=== PATIENT | female | born 1945 | race Caucasian/White ===

== ENCOUNTER 2017-08-21 18:16 | Inpatient (IN) | payer OTHER ==
[~2017-08-21] VITALS: Ht 165.1 cm; Wt 54.4 kg
--- NOTE | 2017-08-21 18:46 | NUR ---
PATIENT IS AWAKE AND ALERT IN NO DISTRESS.
[2017-08-21 20:03] LABS: BASOPHILS % (AUTO) 0.4 % (0.0-2.0); EOSINOPHILS % (AUTO) 0.6 % (0.0-7.0); HEMATOCRIT 44.3 % (37-47); HEMOGLOBIN 14.3 G/DL (12.0-16.0); LYMPHOCYTES # (AUTO) 1.2 K/UL (0.8-4.8); LYMPHOCYTES % (AUTO) 17.2 % (20.5-51.5); MEAN CORPUSCULAR HEMOGLOBIN 30.9 UUG (27.0-31.0); MEAN CORPUSCULAR HGB CONC 32 g/dL (32.0-37.0); MEAN CORPUSCULAR VOLUME 95.6 FL (81.0-99.0); MONOCYTES # (AUTO) 0.7 K/UL (0.1-1.30); MONOCYTES % (AUTO) 10.4 % (0.0-11.0); NEUTROPHILS # (AUTO) 4.9 K/UL (1.8-8.9); NEUTROPHILS % (AUTO) 71.4 % (38.5-71.5); PLATELET COUNT (AUTO) 165 K/UL (150-450); RED BLOOD CELL COUNT(AUTO) 4.64 MIL/UL (4.2-5.4); WHITE BLOOD COUNT (AUTO) 6.8 K/UL (4.0-11.2)
[2017-08-21 20:16] LABS: CARBON DIOXIDE 31 mmol/L (21-32); CHLORIDE 98 mmol/L (98-107); CREATININE 0.8 mg/dL (0.6-1.3); GLUCOSE 115 mg/dL (74-106); POTASSIUM 3.6 mmol/L (3.5-5.1); UREA NITROGEN, BLOOD 22 mg/dL (7-18)
[2017-08-21 20:31] LABS: ALANINE AMINOTRANSFERASE 23 U/L (14-59); ALKALINE PHOSPHATASE 79 U/L (50-136); ASPARTATE AMINOTRANSFERASE 24 U/L (15-37); BILIRUBIN,DIRECT 0.2 mg/dL (0.0-0.2); BILIRUBIN,TOTAL 0.9 mg/dL (0.2-1.0); TOTAL PROTEIN, SERUM 7.5 g/dL (6.4-8.2)
[2017-08-21 21:20] LABS: ABG BASE EXCESS 2.1 mmol/L; ABG HCO3 24.3 mmol/L; ABG PCO2 31.4 mmHg (35.0-45.0); ABG PH 7.507 (7.350-7.450); ABG PO2 83.2 mmHg (75.0-100.0); ABG SITE LEFT BRACHIAL; VENT MODE Room Air
--- NOTE | 2017-08-21 21:24 | NUR ---
Call placed to [facility] Nephrology, Dr. Augustin will be paged.
--- NOTE | 2017-08-21 22:38 | NUR ---
2nd call placed to [facility] Nephrology, Dr. Augustin will be paged.
--- NOTE | 2017-08-21 23:24 | NUR ---
Pt. admitted to [facility], under care of Dr. Augustin Belongs List completed
--- NOTE | 2017-08-21 23:30 | NUR ---
Pt arrived from ER via gurney accompanied by GIOVANI Galan . Admitted for Smoke Inhalation. Patient is alert and verbally responsive. Able to make needs known. No c/o pain and discomfort at this time. No acute distress noted. No SOB noted. Head to toe assessment done. Patient noted with discoloration on both lower extremities, both upper extremities and redness on both heels. Heels kept elevated. Patient also noted with SDTI pressure ulcer on left and right buttock. Wound consult ordered. Pictures taken and placed in cart. Saline lock on right hand G20, patent and intact. Kept clean, dry and comfortable. All needs attended to promptly. Call light within reach. Safety and fall precautions observed and maintained. Will continue to monitor. Addendum: 08/22/17 at 0630 by JASON SYED RN Patient admitted as Hospice
--- NOTE | 2017-08-22 00:30 | NUR ---
Spoke with Dr. Augustin regarding new admission and medications. Per okay to continue all medications.
--- NOTE | 2017-08-22 00:58 | NUR ---
Patient complaining of lower back pain with pain level of 10/10. Patient with original orders for Morphine Sulfate (Concentrate) Solution 20mg/ml, Give 5mg Sublingually q4hrs as needed for pain level of 6-10. MD aware that patient is on hospice. Verbalize to MD that we don't have this medication and if we can change route. MD with new orders fro Morphine 2mg IVP Q4h PRN. New orders noted and carried out.
[2017-08-22] MEDS ORDERED: MORPHINE SULFATE 2 MG/1 ML DISP.SYRIN IV PRN (01:00)
[2017-08-22] MEDS ORDERED: MORPHINE SULFATE 2 MG/1 ML DISP.SYRIN ONE (01:36)
--- NOTE | 2017-08-22 05:51 | NUR ---
Patient slept comfortably throughout the night. No c/o pain and discomfort. No acute distress. No SOB. Kept clean and dry. All needs attended to promptly. Call light within reach. Will continue to monitor.
[2017-08-22] MEDS ORDERED: MORP30TA59 PO (09:00)
[2017-08-22] MEDS ORDERED: DOCU-141 PO (09:00)
[2017-08-22] MEDS ORDERED: HYOS-6 SL (09:00)
[2017-08-22] MEDS ORDERED: ACET-2154 PO (09:00)
[2017-08-22] MEDS ORDERED: ONDA4TAB5 PO (09:00)
[2017-08-22] MEDS ORDERED: OMEP20CA10 PO (09:00)
[2017-08-22] MEDS ORDERED: BISA10EN RC (09:00)
[2017-08-22] MEDS ORDERED: CITA20TA11 PO (09:00)
[2017-08-22] MEDS ORDERED: FLUT1DIS28 IH (09:00)
[2017-08-22] MEDS ORDERED: MORP15TA SL (09:00)
[2017-08-22] MEDS ORDERED: POLY17PO4 PO (09:00)
[2017-08-22] MEDS ORDERED: LORA0.5T PO (09:00)
[2017-08-22] MEDS ORDERED: MAGN400O6 PO (09:00)
[2017-08-22] MEDS ORDERED: OXYC-128 PO (09:00)
[2017-08-22] MEDS ORDERED: LEVE500T9 PO (09:00)
[2017-08-22 09:07] VITALS: BP 116/80
[2017-08-22] MEDS ORDERED: MAGNESIUM HYDROXIDE 30 ML LIQUID UDC PO SCH (10:15)
[2017-08-22] MEDS ORDERED: LORAZEPAM 0.5 MG TABLET PO PRN (10:15)
[2017-08-22] MEDS ORDERED: BISACODYL 10 MG SUPP.RECT RC PRN (10:15)
[2017-08-22] MEDS ORDERED: ACETAMINOPHEN 325 MG TABLET PO PRN (10:15)
[2017-08-22] MEDS ORDERED: OXYCODONE/APAP 5-325 MG TABLET PO PRN (10:15)
[2017-08-22] MEDS ORDERED: MISCELLANEOUS MED XX PRN (10:15)
[2017-08-22] MEDS ORDERED: ONDANSETRON HCL 4 MG TABLET PO PRN (10:15)
[2017-08-22] MEDS ORDERED: HYOSCYAMINE SULFATE 0.125 MG TABLET SL PRN (10:15)
[2017-08-22] MEDS ORDERED: MORPHINE SULFATE IR 30 MG TABLET PO PRN (10:15)
[2017-08-22] MEDS: FLUTICASONE/VILANTEROL 1 EACH BLST.W.DEV INH SCH (10:30)
[2017-08-22] MEDS: LEVETIRACETAM 500 MG TABLET PO SCH ×2 (11:00→17:00)
[2017-08-22] MEDS: DOCUSATE SODIUM 100 MG CAPSULE PO SCH ×2 (11:00→17:00)
[2017-08-22] MEDS: MIRALAX 17 GM POWD.PACK PO SCH (11:00)
[2017-08-22] MEDS: CITALOPRAM 20 MG TABLET PO SCH (11:01)
[2017-08-22] MEDS: MORPHINE SULFATE SR 30 MG TABLET.SA PO SCH ×2 (11:01→20:03)
[2017-08-22 20:00] VITALS: BP 130/94
[2017-08-22] MEDS ORDERED: FLUTICASONE/SALMETEROL 250/50 INHALER IH SCH (21:00)
[2017-08-23 05:15] VITALS: BP 103/84
[2017-08-23] MEDS: PANTOPRAZOLE SODIUM 40 MG TABLET.DR PO SCH (05:49)
--- NOTE | 2017-08-23 07:00 | NUR ---
Slept well throughout shift. No acute resp. distress, vital signs stable. Incontinence care provided, kept comfortable.
[2017-08-23] MEDS: LEVETIRACETAM 500 MG TABLET PO SCH ×2 (08:15→16:20)
[2017-08-23] MEDS: MIRALAX 17 GM POWD.PACK PO SCH (08:15)
[2017-08-23] MEDS: MORPHINE SULFATE SR 30 MG TABLET.SA PO SCH ×2 (08:15→21:05)
[2017-08-23] MEDS: DOCUSATE SODIUM 100 MG CAPSULE PO SCH ×2 (08:15→16:20)
[2017-08-23] MEDS: CITALOPRAM 20 MG TABLET PO SCH (08:16)
[2017-08-23] MEDS: FLUTICASONE/VILANTEROL 1 EACH BLST.W.DEV INH SCH (09:00)
[2017-08-23 11:49] VITALS: BP 117/81
--- NOTE | 2017-08-23 12:11 | NUR ---
RECEIVED PT IB BED SLEEPING,NO C/O PAIN NOTED.CALL LIGHT WITH IN REACH.PT IS AXOX3
[2017-08-23 15:43] VITALS: BP 100/77
[2017-08-23 19:40] VITALS: BP 102/68
[2017-08-23 22:20] VITALS: BP 102/68
[2017-08-24 04:00] VITALS: BP 110/84
[2017-08-24] MEDS: PANTOPRAZOLE SODIUM 40 MG TABLET.DR PO SCH ×2 (06:22→09:45)
--- NOTE | 2017-08-24 06:39 | NUR ---
END OF SHIFT SUMMERY: pt is A&O X 3 , on room air,sating well. VSS, denies pain. no acute /cardiac/respiratory distress noted. will continue to monitor and endorse pt to the next nurse to continue the care.
[2017-08-24] MEDS: FLUTICASONE/VILANTEROL 1 EACH BLST.W.DEV INH SCH (09:00)
[2017-08-24] MEDS: MIRALAX 17 GM POWD.PACK PO SCH (09:44)
[2017-08-24] MEDS: LEVETIRACETAM 500 MG TABLET PO SCH ×2 (09:44→16:40)
[2017-08-24] MEDS: DOCUSATE SODIUM 100 MG CAPSULE PO SCH ×2 (09:45→16:40)
[2017-08-24] MEDS: CITALOPRAM 20 MG TABLET PO SCH (09:45)
[2017-08-24] MEDS: MORPHINE SULFATE SR 30 MG TABLET.SA PO SCH ×2 (09:45→21:20)
[2017-08-24 11:07] VITALS: BP 129/86
[2017-08-24 11:22] VITALS: BP 95/64
[2017-08-24] MEDS ORDERED: PANT40TA2 PO (11:50)
--- NOTE | 2017-08-24 12:00 | NUR ---
RECEIVED REPORT FROM LEAVING NURSE. PATIENT IN BED AWAKE, NO EVIDENCE OF DISTRESS NOTED, BED IN LOW POSITION, SIDE RAILS UP X2.
[2017-08-24 15:48] VITALS: BP 100/66
--- NOTE | 2017-08-24 17:43 | NUR ---
PATIENT IN BED, NOT EATING A SIGNIFICANT AMOUNT OF MEALS. PATIENT HAS SACRAL REDNESS, MEPILEX PLACED FOR SKIN PROTECTION. PATIENT COMPLAINS OF GENERALIZED PAIN, AND WAS GIVEN ORAL MORPHINE 15MG.
[2017-08-24 20:45] VITALS: BP 90/63
[2017-08-25 04:30] VITALS: BP 107/71
--- NOTE | 2017-08-25 05:46 | NUR ---
NSG: PT ALERT BUT CONFUSED. NO ACUTE DISTRESS NOTED. DENIES DISCOMFORT. HAS PRODUCTIVE COUGH WITH CLEAR SPUTUM. REPOSITIONED. KEPT CLEAN AND DRY. ALL NEEDS ATTENDED.
--- NOTE | 2017-08-25 07:20 | NUR ---
RECEIVED REPORT FROM FOLDER GLUER OPERATOR NURSE, PATIENT IN BED ASLEEP, NO EVIDENCE OF DISTRESS NOTED, BED IN LOW POSITION, SIDE RAILS UP X2.
[2017-08-25] MEDS: LEVETIRACETAM 500 MG TABLET PO SCH (09:15)
[2017-08-25] MEDS: CITALOPRAM 20 MG TABLET PO SCH (09:15)
[2017-08-25] MEDS: MORPHINE SULFATE SR 30 MG TABLET.SA PO SCH (09:15)
[2017-08-25] MEDS: DOCUSATE SODIUM 100 MG CAPSULE PO SCH (09:15)
[2017-08-25] MEDS: MIRALAX 17 GM POWD.PACK PO SCH (09:16)
[2017-08-25 11:36] VITALS: BP 104/76
--- NOTE | 2017-08-25 12:20 | NUR ---
PICTURES WERE TAKEN OF EXISTING SKIN INTEGRITY ISSUES. PATIENT TEACHING PERFORMED, IV ACCESS REMOVED. CALLED REPORT TO MILENA AT [facility]. PATIENT IS BEING TRANSPORTED AT THIS TIME BY AMBULANCE.
== END 2017-08-25 12:30 | DRG 918 ==
LOC: ER 18:20 → MEDSURG1 22:48 → MED 08-22 18:48
PROVIDERS: ADMIT Internal Medicine; ATTEND Internal Medicine
DX: T59.811A Toxic effect of smoke, accidental (unintentional), initial encounter (principal); J44.9 Chronic obstructive pulmonary disease, unspecified; G40.909 Epilepsy, unspecified, not intractable, without status epilepticus; K21.9 Gastro-esophageal reflux disease without esophagitis; Z87.891 Personal history of nicotine dependence; Z96.649 Presence of unspecified artificial hip joint; Y92.129 Unspecified place in nursing home as the place of occurrence of the external cause; R26.9 Unspecified abnormalities of gait and mobility; F99 Mental disorder, not otherwise specified
CPT/HCPCS: 36415; 36600; 70030-TC; 71010; 85025; 93005; A4663; J2270